=== PATIENT | female | born 1975 | race Caucasian/White ===

== ENCOUNTER 2018-05-13 10:21 | Observation (INO) | payer OTHER ==
[2018-05-09 13:03] LABS: BASOPHILS # (AUTO) 0.1 (0.0-0.1); BASOPHILS % 1.2 % (0.0-1.0); EOSINOPHILS # (AUTO) 0.1 (0.0-0.4); EOSINOPHILS % 1.7 % (0.0-6.0); HEMATOCRIT 38.1 % (34.2-44.1); HEMOGLOBIN 12.3 g/dL (12.0-16.0); LYMPHOCYTES # (AUTO) 3.1 (1.0-3.2); LYMPHOCYTES % 40.4 % (18.0-39.1); MEAN CORPUSCULAR HEMOGLOBIN 27.6 pg (28-32); MEAN CORPUSCULAR HGB CONC 32.3 g/dL (31-35); MEAN CORPUSCULAR VOLUME 85.6 fL (81-99); MONOCYTES # (AUTO) 0.5 (0.2-0.8); MONOCYTES % 6.7 % (4.4-11.3); NEUTROPHILS # (AUTO) 3.8 (2.1-6.9); NEUTROPHILS % 49.7 % (38.7-80.0); PLATELET COUNT 277 x10e3/uL (140-360); RED BLOOD COUNT 4.45 x10e6/uL (3.6-5.1); RED CELL DISTRIBUTION WIDTH 13.2 % (11.7-14.4)
[2018-05-09 13:27] LABS: ANION GAP 12.7 mmol/L (8-16); BLOOD UREA NITROGEN 12 mg/dL (7-26); BUN/CREATININE RATIO 17 (6-25); CALCIUM 9.5 mg/dL (8.4-10.2); CARBON DIOXIDE 22 mmol/L (22-29); CHLORIDE 107 mmol/L (98-107); CREATININE, SERUM 0.71 mg/dL (0.57-1.11); EST GLOMERULAR FILTRATION RATE > 60 ML/MIN (60-); GLUCOSE 96 mg/dL (74-118); POTASSIUM 4.7 mmol/L (3.5-5.1); SODIUM 137 mmol/L (136-145)
[~2018-05-13] VITALS: Ht 177.8 cm; Wt 110.2 kg
[~2018-05-13 10:21] MED LIST: FUROSEMIDE40 MG PO; MOTRIN200 MG PO; SUDAFED 12 HOU120 MG
[2018-05-13] MEDS ORDERED: LIDOCAINE HCL (LTA) 4 ML SOLN ONE (11:24)
[2018-05-13] MEDS ORDERED: ACETAMINOPHEN 1000 MG/100 ML 100 ML IV ONE (11:24)
[2018-05-13] MEDS ORDERED: BUPIVACAINE 0.25%/EPI 30ML SDV INJ ONE (11:43)
[2018-05-13] MEDS ORDERED: ACETAMINOPHEN 1000 MG/100 ML IV PRN (14:30)
[2018-05-13] MEDS ORDERED: KETOROLAC TROMETHAMINE 30 MG/ML VIAL IV PRN (14:30)
[2018-05-13] MEDS ORDERED: HYDROCODONE/APAP 7.5MG-325MG 1 EA TAB PO PRN (14:30)
[2018-05-13] MEDS ORDERED: NALOXONE HCL INJ 0.4 MG/ML AMP IV PRN (14:30)
[2018-05-13] MEDS ORDERED: HYDROMORPHONE 0.2MG/ML-SOD CHL 30ML PCA SYRINGE IV PRN (14:30)
[2018-05-13] MEDS ORDERED: FENTANYL CITRATE/PF 100MCG/2 ML INJ ONE ×2 (14:33→19:28)
[2018-05-13] MEDS ORDERED: MORPHINE SULFATE INJ 10 MG/ML ONE (14:33)
[2018-05-13] MEDS ORDERED: HYDROMORPHONE 2MG/ML 2 MG/ML ML ONE (14:49)
[2018-05-13] MEDS ORDERED: KETOROLAC TROMETHAMINE 30 MG/ML VIAL ONE (14:59)
[2018-05-13] MEDS ORDERED: PANTOPRAZOLE 40 MG 10ML VIAL IV SCH (15:00)
[2018-05-13] MEDS ORDERED: HYDROMORPHONE 0.2MG/ML-SOD CHL 30ML PCA SYRINGE IV ONE (15:00)
--- NOTE | 2018-05-13 15:11 | Operative Report ---
DATE OF PROCEDURE: May 13, 2018 PREOPERATIVE DIAGNOSIS: Multiply recurrent large lower abdominal ventral hernia. POSTOPERATIVE DIAGNOSES 1. Multiply recurrent large lower abdominal ventral hernia. 2. Right inguinal hernia. OPERATIONS PERFORMED 1. Repair of recurrent lower abdominal ventral hernia with mesh. 2. Repair of right inguinal hernia with mesh. PRODUCTION AIDE: Marcelo HANSEN. ANESTHESIA: General. COMPLICATIONS: None. ESTIMATED BLOOD LOSS: 50 mL. DESCRIPTION OF PROCEDURE: With the patient lying in bed in the supine position under good general endotracheal anesthesia, the abdomen was prepped with Betadine solution and draped in the usual manner. A lower abdominal midline incision was made. It was carried down through the subcutaneous tissue, and immediately in the mid lower abdomen a hernia sac was encountered. The hernia sac was then slowly and carefully dissected in all directions, and the fascia was dissected from the pubic tubercle all the way up to the umbilicus and laterally to the lateral obliques in order to be able to get access to the entire hernia. The patient had had previous multiple repairs, and at this time there was a blowout in the right side of the abdomen that appeared to be coming almost right through the mesh from the lateral edge of the mesh. There was bowel contained within the hernia. The hernia sac was then opened, and all of the contents were from the hernia sac and reduced back to the intra-abdominal cavity. Examination at this point revealed that the patient also had a right inguinal hernia coming right through the external ring. This complicated the procedure because we needed to anchor the mesh all the way down to the groin; so, the hernia had to be fixed in order to be able to fix the ventral hernia as well. The external oblique aponeurosis was then opened along the length of its fibers, and the hernia sac was then suture ligated with 0 Vicryl and divided and reduced back to the intra-abdominal cavity. The internal ring was then closed with a purse-string suture of 0 Vicryl. After this was done, flat mesh was then placed over the floor and sutured to the conjoined tendon and the inguinal ligament using interrupted sutures of 2-0 Vicryl. The external oblique aponeurosis was closed with a running suture of 2-0 Vicryl. After this was done, the larger hernia defect was then closed transversely with interrupted sutures of 0 Ethibond and also a running number 1 Vicryl suture. This gave us a satisfactory closure without any tension. A large piece of UltraPro mesh was then placed to cover the entire lower abdomen and was then sutured all the way around with interrupted sutures of 0 Ethibond and 0 Vicryl. This gave us a satisfactory repair without any tension. The whole area was then thoroughly irrigated. Perfect hemostasis was ascertained. Two 10 flat Cesar-Mehta drains were placed and brought out through separate stab wound incisions. Subcutaneous tissue was approximated with 2-0 Vicryl, and the skin was closed with clips. Dressings were applied. The sponge, lap and needle count was correct. The patient tolerated the procedure well and returned to the recovery room in stable condition. Job#: [id number]
[2018-05-13 17:29] VITALS: BP 100/58
[2018-05-13] MEDS: SODIUM CHLORIDE 0.9% 1000ML 1,000 ML IV SCH (17:46)
[2018-05-13] MEDS: CEFAZOLIN SOD 1 GM/D5W 50ML 50 ML IV SCH (17:46)
[2018-05-13 17:57] VITALS: BP 100/58
[2018-05-13 18:05] VITALS: BP 100/58
--- NOTE | 2018-05-13 18:16 | NUR ---
patient received from [facility] via stretcher. see admit assess. abdominal binder in place with VIN x2 draining bloody output. SHIP MATE dilaudid in place and patient instructed to use. family at bs. vitals stable with no distress.
--- NOTE | 2018-05-13 19:17 | NUR ---
Report received and walking rounds complete. Pt A&O and in no apparent distress and all safety measures ensured. Pt encouraged to use call loco for assistance.
[2018-05-13] MEDS ORDERED: NEOSTIGMINE 5 MG/5ML SYR ONE (19:28)
[2018-05-13] MEDS ORDERED: GLYCOPYRROLATE INJ 1MG/ 5 ML SYR ONE (19:28)
[2018-05-13] MEDS ORDERED: LIDOCAINE HCL 2% LOCAL INJ 5 ML SDV VIAL INJ ONE (19:28)
[2018-05-13] MEDS ORDERED: DEXAMETHASONE SOD PHOS INJ 4 MG/ML VIAL ONE (19:28)
[2018-05-13] MEDS ORDERED: ROCURONIUM BROMIDE 10 MG/ML 5ML VIAL ONE (19:28)
[2018-05-13] MEDS ORDERED: MIDAZOLAM HCL 2 MG/2 ML VIAL ONE (19:28)
[2018-05-13] MEDS ORDERED: PROPOFOL IV EMULSION 10 MG/ML 20 ML VIAL ONE (19:28)
[2018-05-13] MEDS ORDERED: ONDANSETRON HCL INJ 2 MG/ML VIAL ONE (19:28)
[2018-05-13] MEDS ORDERED: SEVOFLURANE INHAL SOLN 250 ML PEN BTL ONE (19:28)
[2018-05-13] MEDS: ONDANSETRON HCL INJ 2 MG/ML VIAL IV PRN (19:39)
[2018-05-13 19:45] VITALS: BP 110/58
[2018-05-13 20:31] VITALS: BP 110/58
--- NOTE | 2018-05-13 21:50 | NUR ---
Pt c/o not urinating as frequently or at all and wants to know if the doctor can let her straight cath. Pt has no complaints of pain. Contacted MD for orders. Dr. Salcedo returned called and stated pt needs to get up and walk and intake fluids. MD stated to scan pts bladder and if > 300cc then ok to cath.
--- NOTE | 2018-05-13 23:55 | NUR ---
Pt states she has urinated after drinking and walking a bit. Checked with bladder scanner for residual and result was less than < 100 cc.
[2018-05-14 00:40] VITALS: BP 100/64
[2018-05-14] MEDS: CEFAZOLIN SOD 1 GM/D5W 50ML 50 ML IV SCH (00:50)
[2018-05-14] MEDS: SODIUM CHLORIDE 0.9% 1000ML 1,000 ML IV SCH (03:00)
[2018-05-14] MEDS: ONDANSETRON HCL INJ 2 MG/ML VIAL IV PRN (03:37)
[2018-05-14 05:01] LABS: BASOPHILS # (AUTO) 0.1 (0.0-0.1); BASOPHILS % 0.8 % (0.0-1.0); EOSINOPHILS # (AUTO) 0.1 (0.0-0.4); EOSINOPHILS % 0.9 % (0.0-6.0); HEMOGLOBIN 10.4 g/dL (12.0-16.0); LYMPHOCYTES # (AUTO) 1.9 (1.0-3.2); LYMPHOCYTES % 20.5 % (18.0-39.1); MEAN CORPUSCULAR HEMOGLOBIN 27.2 pg (28-32); MEAN CORPUSCULAR HGB CONC 31.5 g/dL (31-35); MEAN CORPUSCULAR VOLUME 86.4 fL (81-99); MONOCYTES # (AUTO) 0.9 (0.2-0.8); MONOCYTES % 9.5 % (4.4-11.3); NEUTROPHILS # (AUTO) 6.3 (2.1-6.9); NEUTROPHILS % 67.8 % (38.7-80.0); PLATELET COUNT 279 x10e3/uL (140-360); RED BLOOD COUNT 3.82 x10e6/uL (3.6-5.1); RED CELL DISTRIBUTION WIDTH 13.2 % (11.7-14.4)
[2018-05-14 05:21] LABS: ANION GAP 13.3 mmol/L (8-16); BLOOD UREA NITROGEN 9 mg/dL (7-26); BUN/CREATININE RATIO 14 (6-25); CALCIUM 8.6 mg/dL (8.4-10.2); CARBON DIOXIDE 24 mmol/L (22-29); CHLORIDE 107 mmol/L (98-107); CREATININE, SERUM 0.65 mg/dL (0.57-1.11); EST GLOMERULAR FILTRATION RATE > 60 ML/MIN (60-); GLUCOSE 113 mg/dL (74-118); POTASSIUM 4.3 mmol/L (3.5-5.1); SODIUM 140 mmol/L (136-145)
[2018-05-14 06:01] VITALS: BP 99/53
--- NOTE | 2018-05-14 07:01 | NUR ---
Report given to oncoming nurse
[2018-05-14 08:20] VITALS: BP 118/65
[2018-05-14] MEDS ORDERED: FUROSEMIDE 40 MG TAB PO SCH (09:00)
[2018-05-14 09:31] VITALS: BP 118/65
[2018-05-14] MEDS ORDERED: TYLENOL WITH C1 EACH PO (10:26)
[2018-05-14] MEDS ORDERED: KEFLEX500 MG PO (10:27)
== END 2018-05-14 10:56 | disposition home or self-care (01) ==
LOC: OR 10:21 → PACU V 14:28 → IMCU 17:10
PROVIDERS: ADMIT Surgery; ATTEND Surgery
DX: K43.0 Incisional hernia with obstruction, without gangrene (principal); K40.31 Unilateral inguinal hernia, with obstruction, without gangrene, recurrent; K58.9 Irritable bowel syndrome, unspecified; E66.9 Obesity, unspecified; Z72.0 Tobacco use; Z87.442 Personal history of urinary calculi; Z88.2 Allergy status to sulfonamides; Z68.34 Body mass index [BMI] 34.0-34.9, adult
CPT/HCPCS: 36415 ×2; 49566; 49568; 80048 ×2; 85025 ×2; 93005; C1781 ×2; G0378 ×2; J0131; J0690 ×2; J1100; J1170; J1885 ×2; J2001; J2250; J2270; J2405 ×2; J2704; J3490; J7030 ×2

== ENCOUNTER 2023-03-16 07:06 | Emergency (ER) | payer OTHER ==
[~2023-03-16] VITALS: Ht 175.3 cm; Wt 105.4 kg
[~2023-03-16 07:06] MED LIST changes: +KEFLEX500 MG PO; +TYLENOL WITH C1 EACH PO
[2023-03-16] MEDS ORDERED: KETOROLAC TROMETHAMINE 30 MG/ML VIAL IV STA (07:28)
[2023-03-16] MEDS ORDERED: SODIUM CHLORIDE 0.9% 1000ML 1,000 ML IV ONE (07:30)
[2023-03-16] MEDS ORDERED: DEXAMETHASONE PHOS 4MG/ML 5ML MULTIDOSE VIAL IV ONE (08:15)
[2023-03-16] MEDS ORDERED: DEXAMETHASONE 10MG/ML PF INJ IV ONE (08:15)
[2023-03-16] MEDS ORDERED: DEXAMETHASONE SOD PHOS INJ 4 MG/ML SDV ONE (08:15)
[2023-03-16] MEDS ORDERED: AMOXICILLIN500 MG PO (08:16)
[2023-03-16] MEDS ORDERED: ACETAMINOPHEN 325 MG TAB ONE (08:26)
[2023-03-16 08:28] VITALS: O2SAT 96
[2023-03-16] MEDS ORDERED: DEXAMETHASONE SOD PHOS INJ 4 MG/ML SDV IV ONE (08:30)
[2023-03-16] MEDS ORDERED: ACETAMINOPHEN 325 MG TAB PO ONE (08:30)
== END 2023-03-16 08:28 | disposition home or self-care (01) ==
LOC: FSED 07:15
DX: R50.9 Fever, unspecified (principal); J02.0 Streptococcal pharyngitis; Z20.822 Contact with and (suspected) exposure to COVID-19
CPT/HCPCS: 0223U; 81003; 83518; 87400; 96374; 96375; 99284; J1100; J1885; J7030